=== PATIENT | male | born 1995 | race Caucasian/White ===

== ENCOUNTER 2016-04-14 15:17 | Emergency (ER) | payer OTHER, BC ==
[~2016-04-14 15:17] MED LIST: CLON1TAB PO; DICL75 PO; ROBA750T3 PO
[2016-04-14 15:19] VITALS: BP 135/77; PULSE 100; RESP 16; TEMP 97.8; O2SAT 99
== END 2016-04-14 16:00 | disposition left against medical advice (07) ==
LOC: NED 15:17
DX: S89.90XA Unspecified injury of unspecified lower leg, initial encounter (principal); X58.XXXA Exposure to other specified factors, initial encounter
CPT/HCPCS: 99281